=== PATIENT | female | born 1955 | race African-American/Black ===

== ENCOUNTER 2017-11-29 16:51 | Observation (INO) | payer MEDICARE, MEDICAID ==
[~2017-11-29] VITALS: Ht 165.1 cm; Wt 90.0 kg
[2017-11-29] VITALS (7 sets, daily range): BP systolic 149–171; BP diastolic 80–93; PULSE 63–66; RESP 18–24; TEMP 97.8–98.9; O2SAT 93–98
[~2017-11-29 16:51] MED LIST: 1-ME1LIQ PO; ABIL5TAB6 PO; ADVA250A INH; ADVAI500I PO; ALBU0.63 NEB; AMIT25 PO; ATOR40TA PO; ATOR40TA49 PO; CARV25TA OR; CARV25TA PO; CITA-48 PO; CLON.1 PO; COMBAER INH; CYCL1PAK PO; FAMO1TAB36 PO; FOLI1TAB PO; FOLITAB6 PO; FURO1TAB93 OR; FURO1TAB93 PO; GEMF600T PO; HYDR-2768 PO; HYDR-3580 PO; IPRAAER IN; ISOS20TA38 PO; ISOS30 PO; KCL20 PO; LEVO.025 PO; LISI-366 PO; MELO15 PO; NORV10TA OR; POTA-267 PO; PROT40TA PO; RANI150T PO; SYNT25TA PO; ULTR50TA PO; VENL37.5 PO; VITA-13 PO
--- NOTE | 2017-11-29 17:25 | PD ---
HPI Chief Complaint: Chest Pain Time Seen by Provider: 17:23 Travel History International Travel<30 days: No Contact w/Intl Traveler<30days: No Traveled to known affect area: No History of Present Illness HPI 62-year-old female smoker with history of hypertension, hyperlipidemia, hypothyroidism, presents via EMS for evaluation of chest pain. Symptoms started spontaneously at 11 AM today. She reports left-sided chest pain which she describes as a pressure/sharp pain with no obvious aggravating or relieving factors. Initially she thought that maybe it was her acid reflux. She reports that initially she had some dizziness and shortness of breath as well but that is resolved. She was seen by her primary care physician who provided her with nitroglycerin and aspirin and sent her here for further evaluation. She denies cough, congestion, abdominal pain. According to chart review she had an abnormal stress test in 2013 and underwent a cardiac catheterization on August 09, 2014 which was normal. She has no other complaints at this time. PFSH Past Medical History Anxiety: Yes Depression: Yes Heart Rhythm Problems: No Cardiac Catheterization: No Cardiovascular Problems: Yes (Stints, Cath, HTN) High Cholesterol: Yes Congestive Heart Failure: Yes Coronary Artery Disease: Yes Diabetes: Yes Diminished Hearing: No Diverticulitis: Yes Hypertension: Yes Thyroid Disease: Yes PNEUMOCCOCAL Vaccine (Year): 2009 ?: Not Menopausal: Yes Past Surgical History Coronary Artery Bypass Graft: No Gynecologic Surgery: Yes (HYSTERECTOMY) Hysterectomy: Yes Tonsillectomy: Yes Other Surgery: Yes (COLONOSCOPY/thyroid ) Social History Alcohol Use: Yes (BEER DAILY ) Tobacco Use: Yes (pack per week) Substance Use: No Allergies-Medications (Allergen,Severity, Reaction): Coded Allergies: No Known Allergies (Verified , 02/15/13) Reported Meds & Prescriptions Reported Meds & Active Scripts Active Lisinopril 40 mg (Lisinopril) 40 Mg Tab 40 Mg PO DAILY Protonix (Pantoprazole Sodium) 40 Mg Tabdr 40 Mg PO DAILY Kcl 20 Meq Tab (Potassium Chloride) 20 Meq Tabcr 20 Meq PO BID Norvasc (Amlodipine Besylate) 10 Mg Tab 10 Mg OR DAILY Ultram (Tramadol HCl) 50 Mg Tab 50 Mg PO Q6HPRN no early refills. 120 should last one month Carvedilol 25 mg (Carvedilol) 25 Mg Tab 25 Mg OR BID Folic Acid (Folic Hrvv-Zuoamrbccu-Elxwjjpq) Tab 1 Mg PO DAILY Levothroid (Levothyroxine Sodium) 25 Mcg Tab 25 Mcg PO DAILY Hctz (Hydrochlorothiazide) 25 Mg Tab 25 Mg PO DAILY Imdur 30 Mg (Isosorbide Mononitrate) 30 Mg Tabcr 30 Mg PO HS Famotidine 20 Mg Tab 20 Mg PO HS Lasix (Furosemide) 40 Mg Tab 40 Mg OR DAILY Gemfibrozil 600 Mg Tab 600 Mg PO BID Effexor 37.5 Mg Tab (Venlafaxine Hcl) 37.5 Mg Tab 37.5 Mg PO DAILY Advair Diskus 250/50 (Salmeterol Xinafoate/Fluticasone) 250 Mcg/50 Mcg Inhp 1 Puff INH BID Combivent (Albuterol/Ipratropium) 14.7 Gm Aer 2 Puff INH Q6H Lipitor 40 Mg Tab (Atorvastatin Calcium) 40 Mg Tab 40 Mg PO HS Reported Vitamin D3 (Cholecalciferol) 1,000 Unit Cap PO DAILY Ranitidine 150 mg (Ranitidine HCl) 150 Mg Tab 1 Tab PO DAILY Protonix (Pantoprazole Sodium) 40 Mg Tabdr 40 Mg PO DAILY Mobic 15 Mg Tab (Meloxicam) 15 Mg Tab 15 Mg PO DAILY Lisinopril 40 mg (Lisinopril) 40 Mg Tab 1 Tab PO DAILY Levothyroxine 25 mcg (Levothyroxine Sodium) 25 Mcg Tab 1 Tab PO DAILY Klor-Con 10 (Potassium Chloride) 10 Meq Tab 10 Meq PO DAILY Isosorbide Mononitrate 20 Mg Tab 60 Mg PO DAILY Hydrocodone/Acetaminophen 7.5 mg/325 mg 1 Tab 1 Tab PO Q6H PRN Lasix (Furosemide) 40 Mg Tab 40 Mg PO DAILY Folate (Folic Acid) 1 Mg Tab 1 Mg PO DAILY Cyclobenzaprine Hcl (Cyclobenzaprine HCl) 10 Mg Tab 10 Mg PO TID Combivent Respimat (Albuterol/Ipratropium) Respimat Aer 1 Inhalation IN 5 TIMES A DAY PRN Citalopram Hydrobromide 40 Mg Tab 40 Mg PO DAILY Carvedilol 25 mg (Carvedilol) 25 Mg Tab 1 Tab PO BID Atorvastatin 40 mg (Atorvastatin Calcium) 40 Mg Tab 1 Tab PO HS Amlodipine Besylate 10 Mg Tab 10 Mg PO DAILY Elavil 25 Mg Tab (Amitriptyline Hcl) 25 Mg Tab 25 Mg PO DAILY Accuneb 0.63 mg/3 ml (Albuterol Sulfate) 0.63 Mg/3 Ml Neb 0.63 Mg NEB DIRECTED Advair Diskus 500/50 (Salmeterol Xinafoate/Fluticasone) Salmeterol/Fluticasone 50/500mcg Inh 1 Inhalation PO BID Catapres 0.1 mg (Clonidine HCl) 0.1 Mg Tab 1 Tab PO BID Abilify 5 mg (Aripiprazole) 5 Mg Tab 10 Mg PO DAILY Review of Systems Except as stated in HPI: all other systems reviewed are Neg Physical Exam Narrative GENERAL: Well-developed well-nourished female no acute distress SKIN: Warm and dry. No rash. HEAD: Atraumatic. Normocephalic. EYES: Pupils equal and round. No scleral icterus. No injection or drainage. ENT: No nasal bleeding or discharge. Mucous membranes pink and moist. NECK: Trachea midline. No JVD. CARDIOVASCULAR: Regular rate and rhythm. No murmur appreciated. RESPIRATORY: No accessory muscle use. Mild wheezing bilaterally. GASTROINTESTINAL: Abdomen soft, non-tender, nondistended. Hepatic and splenic margins not palpable. MUSCULOSKELETAL: No obvious deformities. No clubbing. No cyanosis. No edema. NEUROLOGICAL: Awake and alert. No obvious cranial nerve deficits. Motor grossly within normal limits. Normal speech. PSYCHIATRIC: Appropriate mood and affect; insight and judgment normal. Data Data Last Documented VS Vital Signs Date Time Temp Pulse Resp B/P (MAP) Pulse Ox O2 Delivery O2 Flow Rate FiO2 11/29/17 17:43 98.9 63 20 171/92 (118) 96 Room Air 11/29/17 17:29 2.00 Orders Orders Electrocardiogram (11/29/17 17:24) Basic Metabolic Panel (Bmp) (11/29/17 17:24) Ckmb (Isoenzyme) Profile (11/29/17 17:24) Complete Blood Count With Diff (11/29/17 17:24) Magnesium (Mg) (11/29/17 17:24) Prothrombin Time / Inr (Pt) (11/29/17 17:24) Act Partial Throm Time (Ptt) (11/29/17 17:24) Troponin I (11/29/17 17:24) Ecg Monitoring (11/29/17 17:24) Bilateral Bp Monitoring (11/29/17 17:24) Iv Access Insert/Monitor (11/29/17 17:24) Oximetry (11/29/17 17:24) Oxygen Administration (11/29/17 17:24) Sodium Chloride 0.9% Flush (Ns Flush) (11/29/17 17:30) Chest, Pa & Lat (11/29/17 17:24) Albuterol-Ipratropium Neb (Duoneb Neb) (11/29/17 17:30) Potassium Chlor 20 Meq Premix (Kcl 20 Me (11/29/17 18:45) Potassium Chloride (Kcl) (11/29/17 18:45) Calcium Gluconate Inj (Calcium Gluconate (11/29/17 18:45) Potassium, Serum (K) (11/30/17 06:00) Potassium Chloride (Kcl) (11/29/17 19:00) Admit Order (Ed Use Only) (11/29/17 18:48) Activity Bed Rest With Brp (11/29/17 18:48) Vital Signs (Adult) Q4H (11/29/17 18:48) Cardiac Rhythm .As Directed (11/29/17 18:48) Notify Dr: Other .PRN (11/29/17 18:48) Notify Dr. Parameters (11/29/17 18:48) Resp Oxygen Nasal Cannula (11/29/17 ) Ckmb (Isoenzyme) Profile (11/29/17 20:35) Ckmb (Isoenzyme) Profile (11/29/17 23:35) Troponin I (11/29/17 20:35) Troponin I (11/29/17 23:35) Electrocardiogram (11/29/17 20:35) Electrocardiogram (11/29/17 23:35) ^ Obtain (11/29/17 18:48) Sodium Chloride 0.9% Flush (Ns Flush) (11/29/17 19:00) Sodium Chloride 0.9% Flush (Ns Flush) (11/29/17 21:00) Diet Regular Basic (11/29/17 Dinner) Npo After Midnight W/ Po Meds (11/29/17 Dinner) Labs Laboratory Tests Test 11/29/17 17:35 White Blood Count 10.1 TH/MM3 Red Blood Count 4.94 MIL/MM3 Hemoglobin 14.7 GM/DL Hematocrit 43.9 % Mean Corpuscular Volume 88.8 FL Mean Corpuscular Hemoglobin 29.7 PG Mean Corpuscular Hemoglobin Concent 33.5 % Red Cell Distribution Width 15.3 % Platelet Count 255 TH/MM3 Mean Platelet Volume 10.8 FL Neutrophils (%) (Auto) 67.2 % Lymphocytes (%) (Auto) 24.8 % Monocytes (%) (Auto) 5.0 % Eosinophils (%) (Auto) 1.8 % Basophils (%) (Auto) 1.2 % Neutrophils # (Auto) 6.8 TH/MM3 Lymphocytes # (Auto) 2.5 TH/MM3 Monocytes # (Auto) 0.5 TH/MM3 Eosinophils # (Auto) 0.2 TH/MM3 Basophils # (Auto) 0.1 TH/MM3 CBC Comment DIFF FINAL Differential Comment Prothrombin Time 10.7 SEC Prothromb Time International Ratio 1.1 RATIO Activated Partial Thromboplast Time 28.7 SEC Blood Urea Nitrogen 9 MG/DL Creatinine 0.80 MG/DL Random Glucose 138 MG/DL Calcium Level 8.0 MG/DL Magnesium Level 1.7 MG/DL Sodium Level 141 MEQ/L Potassium Level 2.6 MEQ/L Chloride Level 105 MEQ/L Carbon Dioxide Level 28.9 MEQ/L Anion Gap 7 MEQ/L Estimat Glomerular Filtration Rate 88 ML/MIN Total Creatine Kinase 76 U/L Troponin I LESS THAN 0.02 NG/ML MDM Medical Decision Making Medical Screen Exam Complete: Yes Emergency Medical Condition: Yes Medical Record Reviewed: Yes Differential Diagnosis Acute coronary syndrome, angina, costochondritis, pleurisy, pericarditis, myocarditis, COPD, gastritis Narrative Course The patient was placed on ECG monitoring pulse oximetry. A 12-lead EKG was obtained. The patient was given DuoNeb therapy. Lab work, chest x-ray have been ordered. CBC is unremarkable. Chest x-ray reveals CONCLUSION: 1. Cardiomegaly without focal consolidation or significant effusion. Minimal basilar scarring. Tortuous aorta. BMP reveals a potassium of 2.6 and a calcium of 8.0, she declines IV potassium chloride. 60 mEq oral potassium chloride ordered. 1 g of IV calcium has been ordered. She is prescribed Lasix as well as potassium chloride but she ran out of her potassium chloride 2 days ago. Initial cardiac enzymes are negative. The patient will be admitted in of the chest pain center for serial cardiac enzymes and rule out purposes. Diagnosis Primary Impression: Chest pain Additional Impressions: Hypokalemia Hypocalcemia Admitting Information Admitting Physician Requests: Observation Jett Pham Nov 29, 2017 17:25
[2017-11-29] MEDS ORDERED: RESP: ALBUTEROL 2.5 MG/IPRATROPIUM 0.5 MG NEB (SCH) INH ONE (17:30)
[2017-11-29] MEDS ORDERED: SODIUM CHLORIDE 0.9% FLUSH 10 ML FLUSH IVF PRN (17:30)
[2017-11-29 18:06] LABS: INTERNATIONAL NORMALIZED RATIO 1.1 RATIO; PROTHROMBIN TIME - PATIENT 10.7 SEC (9.8-11.6)
--- NOTE | 2017-11-29 18:08 | PD ---
Physical Exam Date Seen by Provider: Nov 29, 2017 Narrative This patient presented to us via [facility] with the chief complaint of chest pain and shortness of breath. Onset was today. Data Data Last Documented VS Vital Signs Date Time Temp Pulse Resp B/P (MAP) Pulse Ox O2 Delivery O2 Flow Rate FiO2 11/29/17 17:43 98.9 63 20 171/92 (118) 96 Room Air 11/29/17 17:29 2.00 Orders Orders Electrocardiogram (11/29/17 17:24) Basic Metabolic Panel (Bmp) (11/29/17 17:24) Ckmb (Isoenzyme) Profile (11/29/17 17:24) Complete Blood Count With Diff (11/29/17:24) Magnesium (Mg) (11/29/17:24) Prothrombin Time / Inr (Pt) (11/29/17:24) Act Partial Throm Time (Ptt) (11/29/17 17:24) Troponin I (11/29/17 17:24) Ecg Monitoring (11/29/17:24) Bilateral Bp Monitoring (11/29/17:24) Iv Access Insert/Monitor (11/29/17 17:24) Oximetry (11/29/17 17:24) Oxygen Administration (11/29/17 17:24) Sodium Chloride 0.9% Flush (Ns Flush) (11/29/17 17:30) Chest, Pa & Lat (11/29/17 17:24) Albuterol-Ipratropium Neb (Duoneb Neb) (11/29/17 17:30) Labs Laboratory Tests Test 11/29/17 17:35 Prothrombin Time 10.7 SEC Prothromb Time International Ratio 1.1 RATIO Activated Partial Thromboplast Time 28.7 SEC MDM Supervised Visit with SAMI: Yes Narrative Course I, Dr. Edouard, have reviewed the advance practice practitioner's documentation and am in agreement, met with the patient face to face, made the diagnosis, and the medical decision making was done by me. *My assessment and Findings: Patient is awake alert and does not appear to be in any distress. Her lungs are clear with good air movement throughout. Please see Jett Pham PA-C's note for results of laboratory and radiographic evaluation, ED course, final diagnosis and disposition Claudia Edouard MD Nov 29, 2017 18:08
[2017-11-29 18:12] LABS: AUTOMATED NEUTROPHIL # 6.8 TH/MM3 (1.8-7.7); BASOPHIL # 0.1 TH/MM3 (0-0.2); BASOPHIL % 1.2 % (0.0-2.0); EOSINOPHIL # 0.2 TH/MM3 (0-0.4); EOSINOPHIL % 1.8 % (0.0-4.0); HEMATOCRIT 43.9 % (35.0-46.0); HEMOGLOBIN 14.7 GM/DL (11.6-15.3); LYMPH % 24.8 % (9.0-44.0); LYMPHOCYTE # 2.5 TH/MM3 (1.0-4.8); MEAN CELL VOLUME 88.8 FL (80.0-100.0); MEAN CORPUSCULAR HEMOGLOBIN 29.7 PG (27.0-34.0); MEAN CORPUSCULAR HGB CONC 33.5 % (32.0-36.0); MEAN PLATELET VOLUME 10.8 FL (7.0-11.0); MONOCYTE # 0.5 TH/MM3 (0-0.9); NEUT % 67.2 % (16.0-70.0); PLATELET COUNT 255 TH/MM3 (150-450); RED BLOOD COUNT 4.94 MIL/MM3 (4.00-5.30); RED CELL DISTRIBUTION WIDTH 15.3 % (11.6-17.2); WHITE BLOOD COUNT 10.1 TH/MM3 (4.0-11.0)
--- NOTE | 2017-11-29 18:14 | RADRPT ---
EXAM DATE/TIME: 11/29/2017 17:57 [facility] COMPARISON: CHEST PA & LAT, June 26, 2015, 13:23. INDICATIONS : Short of breath MEDICAL HISTORY : Cardiovascular disease. SURGICAL HISTORY : None. ENCOUNTER: Subsequent ACUITY: 1 day PAIN SCORE: 0/10 LOCATION: chest FINDINGS: PA and lateral views of the chest demonstrate cardiomegaly. Mild basilar atelectasis. No significant effusion. No pneumothorax. CONCLUSION: 1. Cardiomegaly without focal consolidation or significant effusion. Minimal basilar scarring. Tortuo us aorta. Benjamin Rodriguez MD on November 29, 2017 at 18:10 Board Certified Radiologist. This report was verified electronically.
[2017-11-29 18:28] LABS: BICARBONATE 28.9 MEQ/L (21.0-32.0); BLOOD UREA NITROGEN 9 MG/DL (7-18); CHLORIDE 105 MEQ/L (98-107); GLOMERULAR FILTRATION RATE 88 ML/MIN (>89); GLUCOSE,RANDOM 138 MG/DL (74-106); MAGNESIUM 1.7 MG/DL (1.5-2.5); SODIUM (NA) 141 MEQ/L (136-145); TROPONIN I LESS THAN 0.02 NG/ML (0.02-0.05)
[2017-11-29] MEDS ORDERED: POTASSIUM CHLOR 20 MEQ PREMIX 100 ML IV ONE (18:45)
[2017-11-29] MEDS ORDERED: CALCIUM GLUCONATE INJ 1 GM in DEXTROSE 5% IN WATER 100ML INJ 100 ML IV ONE ×2 (18:45)
[2017-11-29] MEDS ORDERED: POTASSIUM CHLORIDE 20 MEQ CONTROLLED RELEASE TAB PO ONE ×2 (18:45→19:00)
[2017-11-29] MEDS ORDERED: SODIUM CHLORIDE 0.9% FLUSH 10 ML FLUSH IV FLUSH PRN (19:00)
[2017-11-29] MEDS: SODIUM CHLORIDE 0.9% FLUSH 10 ML FLUSH IV FLUSH SCH (21:00)
[2017-11-29 21:26] LABS: TROPONIN I LESS THAN 0.02 NG/ML (0.02-0.05)
[2017-11-30 00:15] LABS: TROPONIN I LESS THAN 0.02 NG/ML (0.02-0.05)
[2017-11-30] MEDS: POTASSIUM CHLORIDE 20 MEQ CONTROLLED RELEASE TAB PO SCH ×2 (00:20→08:12)
[2017-11-30 01:17] VITALS: BP 151/90; PULSE 68; RESP 18; TEMP 97.9; O2SAT 95
[2017-11-30 04:00] VITALS: PULSE 66
--- NOTE | 2017-11-30 04:52 | EKG ---
Date Performed: 11/29/2017 Time Performed: 17:37:21 PTAGE: 62 years EKG: Sinus rhythm POSSIBLE LEFT ATRIAL ENLARGEMENT Nonspecific ST and T wave abnormalities ABNORMAL ECG Compared to pr ior electrocardiogram, POSSIBLE Inferior myocardial infarction no longer present. DOCTOR: Rajeev Coughlin Interpretating Date/Time 11/30/2017 04:51:07
[2017-11-30 04:55] VITALS: BP 161/86; PULSE 71; RESP 18; TEMP 97.8; O2SAT 97
[2017-11-30 07:05] VITALS: PULSE 70
[2017-11-30] MEDS ORDERED: AMLO10TA2 PO (08:11)
[2017-11-30] MEDS ORDERED: FURO40TA PO (08:11)
[2017-11-30] MEDS ORDERED: CARV25TA (08:11)
[2017-11-30] MEDS ORDERED: LISI40TA PO (08:11)
[2017-11-30] MEDS ORDERED: ISOS20TA PO (08:11)
[2017-11-30] MEDS ORDERED: potassium chloride (08:11)
[2017-11-30] MEDS: SODIUM CHLORIDE 0.9% FLUSH 10 ML FLUSH IV FLUSH SCH (08:12)
[2017-11-30] MEDS ORDERED: HYDR-3583 PO (08:17)
[2017-11-30 08:18] VITALS: BP 165/87; PULSE 70; RESP 18; TEMP 97.5; O2SAT 93
[2017-11-30] MEDS ORDERED: POTASSIUM CHLORIDE 25 MEQ EFFERVESCENT TAB PO ONE (09:00)
--- NOTE | 2017-11-30 10:22 | HHI.HP ---
HPI Primary Care Physician Raven Walalce MD Chief Complaint Chest pain History of Present Illness This is a 62-year-old female with history of mild CAD, hypertension, and hyperlipidemia presents to ED with a complaint of developing a left-sided chest pressure around 11:00 yesterday morning while at home. States under the left breast. She recalls being a little short of breath. There is no nausea or diaphoresis. Found nothing to bring on the discomfort. Was intermittent use lasting about 30 minutes at a time. Found nothing to worsen or improve it when it was present. Currently denies chest discomfort. Patient was found to have a potassium level 2.6 in the ED. Apparently the patient ran out of her potassium but had continued taking her Lasix for the past week. Denies having diarrhea or vomiting. Denies recent illness. Denies fevers or chills. Review of Systems General: Patient denies fevers, chills, and recent travel. HEENT: Patient denies headache, sore throat, difficulty swallowing. Cardiovascular: Has the chest discomfort as mentioned above. Denies sensation of heart beating rapidly or irregularly. No syncope. Denies diaphoresis. Respiratory: She was short of breath. Denies inspirational chest discomfort. Denies coughing wheezing or hemoptysis. GI: Patient denies nausea, vomiting, diarrhea, abdominal pain, bloody stools. Musculoskeletal: Patient denies joint pain or edema. Denies calf pain or edema. Neurovascular: Patient denies numbness, tingling, weakness in extremities. Denies headache. Endocrine: Denies polyuria and polydipsia. Hematologic: Denies easy bruising. Skin: Denies rash or itching. Past Family Social History Allergies: Coded Allergies: No Known Allergies (Verified , 02/15/13) Past Medical History Nonobstructive CAD. Hypertension. Hyperlipidemia. COPD. Denies diabetes. Past Surgical History Cardiac catheterization, hysterectomy, and tonsillectomy. Reported Medications Reported Meds & Active Scripts Active Reported Hydrocodone-Acetamin 10-325 mg (Hydrocodone/Acetaminophen) 10 Mg-325 Mg Tablet 1 Tab PO QID Isosorbide Mononitrate 20 Mg Tab Unknown Dose PO BID Take 2 doses 7 hours apart. [potassium chloride] Unknown Dose Carvedilol 25 Mg Tab 25 Mg BID Amlodipine (Amlodipine Besylate) 10 Mg Tab 10 Mg PO DAILY Furosemide 40 Mg Tab 40 Mg PO DAILY Lisinopril 40 Mg Tab 40 Mg PO DAILY Active Ordered Medications Current Medications Medications (Trade) Dose Ordered Sig/Miguel Route Start Time Stop Time Status Last Admin (NS Flush) 2 ml UNSCH PRN IVF 11/29/17 17:30 (NS Flush) 2 ml UNSCH PRN IV FLUSH 11/29/17 19:00 (NS Flush) 2 ml BID IV FLUSH 11/29/17 21:00 11/30/17 08:12 (KCl) 20 meq TID PO 11/30/17 00:25 11/30/17 08:12 Family History There is family history of CAD. Social History Patient continues to smoke a pack of cigarettes daily has done so for more than 40 years. Denies alcohol or illicit drug use. Physical Exam Vital Signs Vital Signs Date Time Temp Pulse Resp B/P (MAP) Pulse Ox O2 Delivery O2 Flow Rate FiO2 11/30/17 08:18 97.5 70 18 165/87 (113) 93 11/30/17 07:05 70 11/30/17 04:55 97.8 71 18 161/86 (111) 97 11/30/17 04:00 66 11/30/17 01:17 97.9 68 18 151/90 (110) 95 11/29/17 23:08 66 11/29/17 22:51 97.9 65 18 149/80 (103) 93 11/29/17 21:08 96 11/29/17 20:52 11/29/17 18:03 21 11/29/17 17:43 98.9 63 20 171/92 (118) 96 Room Air 11/29/17 17:43 20 96 Room Air 11/29/17 17:31 171/92 (118) 11/29/17 17:29 97 Nasal Cannula 2.00 11/29/17 17:28 170/93 (118) 11/29/17 17:28 24 96 Nasal Cannula 2.00 11/29/17 17:20 97.8 64 24 170/93 (118) 98 Physical Exam GENERAL: This is a well-nourished, well-developed patient, in no apparent distress. Patient speaks in clear complete sentences. Patient is pleasant. HEENT: Head is atraumatic and normocephalic. Neck is supple without lymphadenopathy and trachea is midline. No JVD or carotid bruits. CARDIOVASCULAR: Regular rate and rhythm without murmurs, gallops, or rubs. RESPIRATORY: Clear to auscultation. Breath sounds equal bilaterally but diminished little bit in the bases. No wheezes, rales, or rhonchi. Chest wall is nontender. No use of accessory muscles. GASTROINTESTINAL: Abdomen is nontender, nondistended. Abdomen soft. No obvious pulsatile mass or bruit. No CVA tenderness. Strong femoral pulses bilaterally. Normal bowel sounds in all quadrants. MUSCULOSKELETAL: Patient is moving upper and lower extremities freely. No calf tenderness or edema, no Homans sign. Strong pulses in upper and lower extremities. NEUROLOGICAL: Patient is alert and oriented. Cranial nerves 2-12 are grossly intact. No focal deficits and speech is clear. SKIN: No rash and turgor is normal. Laboratory Laboratory Tests Test 11/29/17 17:35 11/29/17 20:40 11/29/17 23:30 11/30/17 07:57 White Blood Count 10.1 Red Blood Count 4.94 Hemoglobin 14.7 Hematocrit 43.9 Mean Corpuscular Volume 88.8 Mean Corpuscular Hemoglobin 29.7 Mean Corpuscular Hemoglobin Concent 33.5 Red Cell Distribution Width 15.3 Platelet Count 255 Mean Platelet Volume 10.8 Neutrophils (%) (Auto) 67.2 Lymphocytes (%) (Auto) 24.8 Monocytes (%) (Auto) 5.0 Eosinophils (%) (Auto) 1.8 Basophils (%) (Auto) 1.2 Neutrophils # (Auto) 6.8 Lymphocytes # (Auto) 2.5 Monocytes # (Auto) 0.5 Eosinophils # (Auto) 0.2 Basophils # (Auto) 0.1 CBC Comment DIFF FINAL Differential Comment Prothrombin Time 10.7 Prothromb Time International Ratio 1.1 Activated Partial Thromboplast Time 28.7 Blood Urea Nitrogen 9 Creatinine 0.80 Random Glucose 138 Calcium Level 8.0 Magnesium Level 1.7 Sodium Level 141 Potassium Level 2.6 2.5 3.2 Chloride Level 105 Carbon Dioxide Level 28.9 Anion Gap 7 Estimat Glomerular Filtration Rate 88 Total Creatine Kinase 76 63 58 Troponin I LESS THAN 0.02 LESS THAN 0.02 LESS THAN 0.02 Result Diagram: 11/29/17 1737 11/30/17 4307 Imaging Last 48 hours Impressions Chest X-Ray 11/29/17 1540 Signed Impressions: Service Date/Time: Wednesday, November 29, 2017 17:57 - CONCLUSION: 1. Cardiomegaly without focal consolidation or significant effusion. Minimal basilar scarring. Tortuous aorta. Benjamin Rodriguez MD Course EKGs are sinus rhythm nonspecific T-wave changes. Caprini VTE Risk Assessment Caprini VTE Risk Assessment: Mod/High Risk (score >= 2) Caprini Risk Assessment Model Point Value = 1 Point Value = 2 Point Value = 3 Point Value = 5 Age 41-60 Minor surgery BMI > 25 kg/m2 Swollen legs Varicose veins or History of unexplained or recurrent spontaneous Oral contraceptives or hormone replacement Sepsis (< 1 month) Serious lung disease, including pneumonia (< 1 month) Abnormal pulmonary function Acute myocardial infarction Congestive heart failure (< 1 month) History of inflammatory bowel disease Medical patient at bed rest Age 61-74 Arthroscopic surgery Major open surgery (> 45 min) Laparoscopic surgery (> 45 min) Malignancy Confined to bed (> 72 hours) Immobilizing plaster cast Central venous access Age >= 75 History of VTE Family history of VTE Factor V Leiden Prothrombin [id number] Lupus anticoagulant Anticardiolipin antibodies Elevated serum homocysteine Heparin-induced thrombocytopenia Other congenital or acquired thrombophilia Stroke (< 1 month) Elective arthroplasty Hip, pelvis, or leg fracture Acute spinal cord injury (< 1 month) Prophylaxis Regimen Total Risk Factor Score Risk Level Prophylaxis Regimen 0-1 Low Early ambulation 2 Moderate Order ONE of the following: *Sequential Compression Device (SCD) *Heparin 5000 units SQ BID 3-4 Higher Order ONE of the following medications: *Heparin 5000 units SQ TID *Enoxaparin/Lovenox 40 mg SQ daily (WT < 150 kg, CrCl > 30 mL/min) *Enoxaparin/Lovenox 30 mg SQ daily (WT < 150 kg, CrCl > 10-29 mL/min) *Enoxaparin/Lovenox 30 mg SQ BID (WT < 150 kg, CrCl > 30 mL/min) AND/OR *Sequential Compression Device (SCD) 5 or more Highest Order ONE of the following medications: *Heparin 5000 units SQ TID (Preferred with Epidurals) *Enoxaparin/Lovenox 40 mg SQ daily (WT < 150 kg, CrCl > 30 mL/min) *Enoxaparin/Lovenox 30 mg SQ daily (WT < 150 kg, CrCl > 10-29 mL/min) *Enoxaparin/Lovenox 30 mg SQ BID (WT < 150 kg, CrCl > 30 mL/min) AND *Sequential Compression Device (SCD) Assessment and Plan Assessment and Plan * Chest pain: Patient has had serial cardiac enzymes and EKGs for ruling out purposes and has been seen by Dr. Lin of cardiology in the chest pain center. Patient is asymptomatic at this time. I discussed this patient with Dr. Ace which the patient states she saw him recently. He confirms that she did have a stress test in the office April 2017 that was essentially normal and that if she is feeling fine she can be discharged home at this time with instruction to follow-up with him. Patient will be discharged at this time with instruction to follow-up with cardiology and PCP however she should return to ED for interval issues. * Hypokalemia: Patient had ran out of her potassium supplementation and continued Lasix for a week. Last potassium level this morning was 3.2 and she was given another 50 mEq of potassium effervescent p.o. She will be given a prescription for K-Dur 20 mEq and will be advised to follow-up with her PCP for further medication. * Hypertension: Continue medication. * Hyperlipidemia: Continue medication. * CAD: Patient to follow-up with her hospital education coordinator. Patient is stable at this time. She is agreeable to this plan. Tim Diaz Nov 30, 2017 10:22
[2017-11-30] MEDS ORDERED: POTA1TAB4 PO (10:26)
--- NOTE | 2017-11-30 10:26 | HHI.DCPOC ---
Discharge Care Plan Diagnosis: (1) Chest pain (2) CAD (coronary artery disease) (3) Hypertension (4) Hyperlipidemia (5) Tobacco abuse (6) Hypokalemia (7) Hypocalcemia Goals to Promote Your Health * To prevent worsening of your condition and complications * To maintain your health at the optimal level Directions to Meet Your Goals Take your medications as prescribed Follow your dietary instruction Follow activity as directed Keep your appointments as scheduled Take your immunizations and boosters as scheduled If your symptoms worsen call your PCP, if no PCP go to Urgent Care Center or Emergency Room Smoking is Dangerous to Your Health. Avoid second hand smoke Call the 24-hour hour crisis hotline for domestic abuse at Tim Diaz Nov 30, 2017 10:26
[2017-11-30] MEDS ORDERED: CARVEDILOL 12.5 MG TAB PO SCH (10:30)
[2017-11-30] MEDS ORDERED: LISINOPRIL 20 MG TAB PO SCH (11:00)
--- NOTE | 2017-11-30 17:06 | EKG ---
Date Performed: 11/29/2017 Time Performed: 22:57:40 PTAGE: 62 years EKG: Sinus rhythm POSSIBLE LEFT ATRIAL ENLARGEMENT ST DEVIATION AND MODERATE T-WAVE ABNORMALITY, CONSIDER LATERAL ISCH EMIA ABNORMAL ECG Since PREVIOUS TRACING , no significant change noted PREVIOUS TRACIN11/29/2017 17.37 DOCTOR: Tamika Lin Interpretating Date/Time 11/30/2017 17:05:43
--- NOTE | 2017-11-30 17:07 | EKG ---
Date Performed: 11/30/2017 Time Performed: 01:23:31 PTAGE: 62 years EKG: Sinus rhythm LEFT ATRIAL ENLARGEMENT ST DEVIATION AND MODERATE T-WAVE ABNORMALITY, CONSIDER LATERAL ISCHEMIA ABNO RMAL ECG Since PREVIOUS TRACING , no significant change noted PREVIOUS TRACIN11/29/2017 22.57 DOCTOR: Tamika Lin Interpretating Date/Time 11/30/2017 17:06:49
== END 2017-11-30 11:27 | disposition home or self-care (01) ==
LOC: NEPC 16:51 → NEDA 19:02 → NEPGCP 20:09
PROVIDERS: ADMIT Internal Medicine Cardiovascular Disease; ATTEND Internal Medicine Cardiovascular Disease
DX: R07.89 Other chest pain (principal); E87.6 Hypokalemia; E83.51 Hypocalcemia; R06.02 Shortness of breath; R42 Dizziness and giddiness; I25.10 Atherosclerotic heart disease of native coronary artery without angina pectoris; I11.0 Hypertensive heart disease with heart failure; I50.9 Heart failure, unspecified; E78.00 Pure hypercholesterolemia, unspecified; J44.9 Chronic obstructive pulmonary disease, unspecified; R94.31 Abnormal electrocardiogram [ECG] [EKG]; E03.9 Hypothyroidism, unspecified; K21.9 Gastro-esophageal reflux disease without esophagitis; E11.9 Type 2 diabetes mellitus without complications; F41.9 Anxiety disorder, unspecified; F32.9 Major depressive disorder, single episode, unspecified; F17.210 Nicotine dependence, cigarettes, uncomplicated; Z79.899 Other long term (current) drug therapy
CPT/HCPCS: 71046; 80048; 82550; 83735; 84132; 84484; 85025; 85610; 85730; 93005; 94664; 99285; G0378